=== PATIENT | female | born 1965 | race Caucasian/White ===

== ENCOUNTER 2020-10-28 11:31 | Outpatient (REF) | payer OTHER, SELFPAY ==
--- NOTE | 2020-10-28 11:35 | MM_ITS ---
EXAMINATION: MM SCREENING DIGITAL BREAST TOMOSYNTHESIS, BILATERAL CLINICAL INFORMATION: Screening. Asymptomatic. Prior history benign biopsy 1992. The lifetime risk of breast cancer based on the Tyrer-Cuzick Model is 8%. COMPARISON: Mammography: 06/05/2019, 09/14/2016 TECHNIQUE: Digital breast tomosynthesis is performed in both the craniocaudal and mediolateral oblique views along with computer-aided detection (CAD). Synthesized 2D images are generated from the tomosynthesis. Additional exaggerated right CC view is provided. FINDINGS: The breasts are heterogeneously dense, which may obscure small masses (ACR BI-RADS breast composition Category c). Left MLO tomography demonstrates subtle architectural changes mid upper quadrant central lateral aspect without correlate on CC view. Finding not seen with certainty on prior exams. Patient data sheet notes history remote breast biopsy 1992, side not provided. Patient will be recalled for additional imaging. The remainder of the breasts are unremarkable. The right breast shows no architectural abnormality. Neither breast shows abnormal calcifications. The axilla are unremarkable. MM/MM tomosynthesis screening BI IMPRESSION: 1. Left: Subtle architectural changes upper quadrant on MLO tomography. 2. Right: No mammographic evidence of malignancy. ASSESSMENT: BI-RADS 0: Incomplete - Need Additional Imaging Evaluation RECOMMENDATION: 1. Additional views of the left breast (3-D spot MLO, 3-D spot ML). 2. Targeted ultrasound if warranted after review of the additional views. 3. Radiology department staff will contact the patient for additional imaging. This patient's information was entered into a reminder system with a target due date for their next mammogram.
== END 2020-10-28 11:32 | disposition home or self-care (01) ==
LOC: HO.MAMMO 11:31
PROVIDERS: PCP Internal Medicine; Visit Provider Internal Medicine
DX: Z12.31 Encounter for screening mammogram for malignant neoplasm of breast (principal)
CPT/HCPCS: 77063; 77067

== ENCOUNTER 2020-10-30 07:52 | Day surgery (SDC) | payer OTHER, SELFPAY ==
[2020-10-24 13:01] VITALS: BMI 25.7
--- NOTE | 2020-10-29 13:37 | P.CONAN_ITS ---
Documented by User: Jeanine Posey 10/29/20 13:38 HPI - Anesthesia Eval Consult details Narrative: 55yo F for Colonoscopy [facility] Past Medical History Medical History Cervical spondylosis Fatty liver Hx of mitral valve prolapse Lumbar disc disorder Thyroid disease Surgical History Surgical History H/O colonoscopy History of esophagogastroduodenoscopy (EGD) Hx of lumbar discectomy Hx of salpingo-oophorectomy, bilateral Social History Social History Smoking Status: Never smoker Use of substances other than those prescribed or required for medical reasons: No Advance Directives: No Advance Directives Information Provided: No Recently lost weight without trying: No Meds Allergies Allergy/AdvReac Type Severity Reaction Status Date / Time No Known Allergies Allergy Verified 10/30/20 08:08 Home Medications Medication Instructions Recorded Confirmed Type dutasteride 1 cap PO DAILY 10/24/20 10/24/20 History fluoxetine 1 cap PO DAILY 10/24/20 10/24/20 History furosemide 2 tab PO DAILY 10/24/20 10/24/20 History levothyroxine 1 tab PO QAM 10/24/20 10/24/20 History liothyronine 1 tab PO QAM 10/24/20 10/24/20 History lorazepam 1 tab PO Q6H PRN 10/24/20 10/24/20 History fluticasone propionate 2 spray NOSTRIL-L 10/30/20 History Exam Exam Date and Time: October 29, 2020 1337 Height,Weight and Vital Signs: Height 5 ft 9 in Weight 78.925 kg Assessment and Plan Assessment Anesthesia Assessment: Chart Reviewed Documented by User: Carly Blanc 10/30/20 08:17 [facility] Past Medical History Medical History Cervical spondylosis Fatty liver Hx of mitral valve prolapse Lumbar disc disorder Thyroid disease Surgical History Surgical History H/O colonoscopy History of esophagogastroduodenoscopy (EGD) Hx of lumbar discectomy Hx of salpingo-oophorectomy, bilateral Social History Social History Smoking Status: Never smoker Use of substances other than those prescribed or required for medical reasons: No Advance Directives: No Advance Directives Information Provided: No Recently lost weight without trying: No Meds Allergies Allergy/AdvReac Type Severity Reaction Status Date / Time No Known Allergies Allergy Verified 10/30/20 08:08 Home Medications Medication Instructions Recorded Confirmed Type dutasteride 1 cap PO DAILY 10/24/20 10/24/20 History fluoxetine 1 cap PO DAILY 10/24/20 10/24/20 History furosemide 2 tab PO DAILY 10/24/20 10/24/20 History levothyroxine 1 tab PO QAM 10/24/20 10/24/20 History liothyronine 1 tab PO QAM 10/24/20 10/24/20 History lorazepam 1 tab PO Q6H PRN 10/24/20 10/24/20 History fluticasone propionate 2 spray NOSTRIL-L 10/30/20 History Exam Airway Mallampati Class: II TM Dist: >3cm Neck ROM: Full Loose/Missing/Broken Teeth: No Heart: RRR Lungs: CTA Assessment and Plan Assessment Anesthesia Assessment: Anesthesia Plan Discussed and Chart Reviewed Final Anesthetic Review NPO: Yes ASA Class: II Final Preanesthetic Review: Meds/Allgs Chart Reviewed, Consent Obtained/Reviewed and Anes Risks/Benef Reviewed Patient Risk: Low Procedure Risk: Low Anesthetic Plan Anesthetic Plan: MAC: Disposition: Standard PACU
[2020-10-30 08:03] VITALS: BP 133/62; PULSE 68; RESP 16; TEMP 37; O2SAT 95
[2020-10-30] MEDS: Lactated Ringers 1,000 ML 100 ML IVCONT (08:18)
--- NOTE | 2020-10-30 08:44 | MHC.SHP ---
Pre-Procedural Eval Section B Chief Complaint: Adenomatous Colon Polyps Details of Present Illness: No changes Relevant Family History (Specify if Yes): No Relevant Social History: None Present Medications: see Short Stay Collaborative assessment Medical History: Significant History (MVP, Hypothyroid on replacement, ?Hepatic steatosis) History of Previous Operations: Relevant previous surgery/procedure and date(s) (bilateral oophorectomies) Allergies: Allergies Allergy/AdvReac Type Severity Reaction Status Date / Time No Known Allergies Allergy Verified 10/30/20 08:08 Review of Systems Sugical H&P ROS: Negative: Constitution, Respiratory, Neurological and Gastrointestinal and Yes, Specify: Cardiovascular (MVP) and Endocrine (hypothryoid) Exam Surgical H&P Exam: Normal: HEENT, Normal: Heart, Normal: Lungs, Normal: Extremities, Normal: Abdomen and Normal: Skin Plan Diagnosis/Plan: Unchanged I have reviewed the history and physical and performed a pertinent physical examination on my patient. No changes have occurred unless specified. yes
[2020-10-30 09:19] VITALS: BP 104/54; PULSE 55; RESP 18; TEMP 36.6; O2SAT 94
--- NOTE | 2020-10-30 09:25 | PM.OP ---
Brief Operative Note Date of Service: 10/30/20 Pre-op diagnosis: COLON CANCER SCREENING, HX OF RECTAL TUBULAR ADENOMA Post-op diagnosis: other (COLONIC POLYPS) Procedure: COLONOSCOPY WITH MULTIPLE POLYPECTOMIES--EXCISIONAL--COLD BX FORCEPS Implants: NONE Surgeon: Margi Howard MD Anesthesia: MAC (MD WINSOME) Estimated blood loss (mL): 5 Pathology: other (ASCENDING COLON, DISTAL RECTAL) Condition: stable Disposition: PACU
[2020-10-30 09:34] VITALS: BP 117/54; PULSE 60; RESP 12; TEMP 36.6; O2SAT 96
[2020-10-30] MEDS: Acetaminophen 325 MG TABLET 650 MG PO (09:45)
--- NOTE | 2020-10-30 10:09 | OP_ITS ---
SURGEON: Margi Howard MD POSTOPERATIVE DIAGNOSIS: Ascending colon polyps, rectal polyps, melanosis coli. PROCEDURE PERFORMED: Colonoscopy with excisional polypectomy x4 with the use of the cold biopsy forceps technique. ESTIMATED BLOOD LOSS: 5 mL. COMPLICATIONS: No complications. ANESTHESIA: Monitored. ANESTHESIOLOGIST: Carly Blanc MD ASSISTANTS: No retail event and sales assistant. SPECIMENS:-outlined below. PREOPERATIVE DIAGNOSES: Colon cancer screening, history of tubular adenoma located in the rectum in 2015. DIRECTOR OF ACCOUNTS PAYABLE: Dr. Howard. CONDITION: Postprocedure, stable. FINDINGS: Digital rectal exam revealed no specific lesion. Video colonoscope was introduced without difficulty. It was navigated into the rectosigmoid sigmoid on up through descending, transverse, ascending colon down into the cecal cap. Appendiceal orifice was seen. Ileocecal valve was well seen. 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 Two diminutive polyps were noted in the ascending colon, one in the proximal ascending colon and one in the distal ascending colon. Slow withdrawal of scope. Good rotational views. Once in the low rectal region, there were at least 2 polyps that had an atypical cryptic appearance. These were removed. All polyps were diminutive in size. PLAN/CURRENT RECOMMENDATIONS: Repeat asymptomatic screening, at the most would be 5 years. If they are greater than 2 tubular adenomas, 3-year exam will be considered. SPECIMEN: Specimens removed; ascending colon 2, distal rectal 2. GRAFT OR IMPLANTS: No grafts or implants. Margi Howard MD MEN/MODL / [id number] [facility], [place]
--- NOTE | 2020-10-30 10:13 | HO.POSTANES ---
Post Anesthesia Evaluation Post Anesthesia Evaluation Vital Signs: Vital Signs Temp Pulse Resp BP Pulse Ox 10/30/20 09:34 97.9 F 60 12 117/54 L 96 10/30/20 09:19 97.9 F 55 18 104/54 L 94 10/30/20 08:03 98.6 F 68 16 133/62 95 Anesthesia: Monitored Pain Control: Satisfactory Nausea/Vomiting: None Hydration: Adequate Anesthesia-Related Issues: No Anes. Related Issues
== END 2020-10-30 10:23 | disposition home or self-care (01) ==
PROVIDERS: PCP Internal Medicine; Visit Provider Internal Medicine Gastroenterology
PROC: 0DJD8ZZ Inspection of Lower Intestinal Tract, Via Natural or Artificial Opening Endoscopic (ICD-10-PCS; CPT 45378; principal; 2020-10-30 08:30)
DX: Z12.11 Encounter for screening for malignant neoplasm of colon (principal); D12.2 Benign neoplasm of ascending colon; K62.1 Rectal polyp; K63.89 Other specified diseases of intestine; Z86.010 Personal history of colon polyps
CPT/HCPCS: 45380; 88305

== ENCOUNTER 2020-11-27 13:21 | Outpatient (REF) | payer OTHER, SELFPAY ==
--- NOTE | 2020-11-27 13:28 | MM_ITS ---
EXAMINATION: MM DIAGNOSTIC DIGITAL BREAST TOMOSYNTHESIS, LEFT CLINICAL INFORMATION: Recall from screening for question of architectural changes upper left breast on one view. COMPARISON: Mammography: 10/28/2020, 06/05/2019, 09/14/2016 TECHNIQUE: Digital breast tomosynthesis is performed. 2D images are generated from the tomosynthesis. The following views are obtained: Spot MLO, spot ML FINDINGS: The breasts are heterogeneously dense, which may obscure small masses (ACR BI-RADS breast composition Category c). Additional views show no architectural abnormality. There is no mass or developing density. Parenchymal pattern appears similar to prior studies. Results are discussed with the patient at time of visit. MM/MM tomosynthesis added views L IMPRESSION: Additional views show parenchymal pattern similar to prior studies. ASSESSMENT: BI-RADS 1: Negative RECOMMENDATION: Routine annual mammography screening. This patient's information was entered into a reminder system with a target due date for their next mammogram.
== END 2020-11-27 13:22 | disposition home or self-care (01) ==
LOC: HO.MAMMO 13:21
PROVIDERS: PCP Internal Medicine; Visit Provider Internal Medicine
DX: N64.89 Other specified disorders of breast (principal)
CPT/HCPCS: 77061; 77065

== ENCOUNTER 2020-12-03 | Outpatient (REF) | payer OTHER, SELFPAY ==
[2020-12-08 21:52] LABS: HPV mRNA E6/E7 Not Detected (Not Detected)
== END 2020-12-03 00:01 | disposition home or self-care (01) ==
LOC: HO.LNP
PROVIDERS: Visit Provider Obstetrics & Gynecology
DX: N95.0 Postmenopausal bleeding (principal)
CPT/HCPCS: 87624; 87625; 88141; 88142

== ENCOUNTER → 2020-12-03 09:32 | Outpatient (BNVA) | payer OTHER, SELFPAY | PROVIDERS: PCP Internal Medicine; Visit Provider Obstetrics & Gynecology ==

== ENCOUNTER 2020-12-04 11:04 | Outpatient (REF) | payer OTHER, SELFPAY | END 2020-12-04 11:05 | disposition home or self-care (01) | LOC: HO.LAB 11:04 | PROVIDERS: Visit Provider Obstetrics & Gynecology | DX: Z13.89 Encounter for screening for other disorder (principal) ==

== ENCOUNTER 2020-12-11 12:45 | Outpatient (REF) | payer OTHER, SELFPAY ==
--- NOTE | 2020-12-11 12:47 | US_ITS ---
EXAMINATION: US PELVIS, COMPLETE CLINICAL INFORMATION: Postmenopausal bleeding; history of bilateral oophorectomies. COMPARISON: Pelvic ultrasound dated 04/09/2015. TECHNIQUE: Transabdominal and transvaginal imaging was performed. FINDINGS: The uterus is of normal size and somewhat heterogeneous in echotexture, measuring 6.5 x 2.6 x 3.8 cm. The uterus is anteverted and anteflexed. A regular homogeneous endometrium is identified measuring 1.1 cm. FIBROIDS: There is 1 fibroid seen. 1. Location: Anterior lower body, myometrial. Size: 1.1 x 1.0 x 0.9 cm. Fibroid characteristics: Hypoechoic. Both ovaries are surgically absent. There is no pelvic free fluid. No adnexal mass is seen. US/US pelvic complete IMPRESSION: 1. A small uterine fibroid is seen. 2. The bilateral ovaries are surgically absent.
--- NOTE | 2020-12-11 12:47 | US_ITS ---
EXAMINATION: US PELVIS, COMPLETE CLINICAL INFORMATION: Postmenopausal bleeding; history of bilateral oophorectomies. COMPARISON: Pelvic ultrasound dated 04/09/2015. TECHNIQUE: Transabdominal and transvaginal imaging was performed. FINDINGS: The uterus is of normal size and somewhat heterogeneous in echotexture, measuring 6.5 x 2.6 x 3.8 cm. The uterus is anteverted and anteflexed. A regular homogeneous endometrium is identified measuring 1.1 cm. FIBROIDS: There is 1 fibroid seen. 1. Location: Anterior lower body, myometrial. Size: 1.1 x 1.0 x 0.9 cm. Fibroid characteristics: Hypoechoic. Both ovaries are surgically absent. There is no pelvic free fluid. No adnexal mass is seen. US/US transvaginal IMPRESSION: 1. A small uterine fibroid is seen. 2. The bilateral ovaries are surgically absent.
== END 2020-12-11 12:46 | disposition home or self-care (01) ==
LOC: HO.US 12:45
PROVIDERS: Visit Provider Obstetrics & Gynecology
DX: N95.0 Postmenopausal bleeding (principal)
CPT/HCPCS: 76830; 76856

== ENCOUNTER → 2020-12-25 13:21 | Outpatient (BNVA) | payer OTHER, SELFPAY | PROVIDERS: Visit Provider Obstetrics & Gynecology ==

== ENCOUNTER → 2021-01-14 14:21 | Outpatient (BNVA) | payer OTHER, SELFPAY | PROVIDERS: PCP Internal Medicine; Visit Provider Obstetrics & Gynecology ==

== ENCOUNTER 2021-01-23 11:09 | Day surgery (SDC) | payer OTHER, SELFPAY ==
--- NOTE | 2021-01-22 09:38 | HO.ANESPROP2 ---
Documented by User: Jeanine Posey 01/22/21 09:39 HPI - Anesthesia Eval Consult details Narrative: 55yo F for D&C Diagnostic Hysteroscopy PMFSH Active Problems Active Problems: All Active Problems (Updated 01/19/21 @ 12:12 by Radha Swan) Well woman exam (Acute) Postmenopausal bleeding (Acute) Past Medical History Medical History Cervical spondylosis Fatty liver Hx of eosinophilia Hx of mitral valve prolapse Lumbar disc disorder Thyroid disease Surgical History Surgical History H/O colonoscopy History of esophagogastroduodenoscopy (EGD) Hx of lumbar discectomy Hx of salpingo-oophorectomy, bilateral Social History Social History Smoking Status: Never smoker Use of substances other than those prescribed or required for medical reasons: No Advance Directives: No Advance Directives Information Provided: No Advance Directives on File: No Meds Allergies Allergy/AdvReac Type Severity Reaction Status Date / Time No Known Allergies Allergy Verified 01/14/21 14:46 Home Medications Medication Instructions Recorded Confirmed Last Taken Type dutasteride 1 cap PO DAILY 10/24/20 01/19/21 Unknown History fluoxetine 1 cap PO DAILY 10/24/20 01/19/21 Unknown History furosemide 2 tab PO DAILY 10/24/20 01/19/21 Unknown History levothyroxine 1 tab PO QAM 10/24/20 01/19/21 Unknown History liothyronine 1 tab PO QAM 10/24/20 01/19/21 Unknown History lorazepam 1 tab PO Q6H PRN 10/24/20 01/14/21 Unknown History aspirin 81 mg tablet,delayed 81 mg PO DAILY 01/14/21 01/19/21 Unknown History release fluticasone propionate 1 spray INTRANASAL DAILY 01/19/21 01/19/21 Unknown History omeprazole 1 cap PO QAM 01/19/21 01/19/21 Unknown History Exam Exam Date and Time: January 22, 2021 0938 Height,Weight and Vital Signs: Height 5 ft 9 in Assessment and Plan Assessment Anesthesia Assessment: Chart Reviewed Documented by User: Mundo Casarez 01/23/21 12:04 PMF Past Medical History Medical History Cervical spondylosis Fatty liver Hx of eosinophilia Hx of mitral valve prolapse Lumbar disc disorder Thyroid disease Surgical History Surgical History H/O colonoscopy History of esophagogastroduodenoscopy (EGD) Hx of lumbar discectomy Hx of salpingo-oophorectomy, bilateral Social History Social History Smoking Status: Never smoker Use of substances other than those prescribed or required for medical reasons: No Advance Directives: No Advance Directives Information Provided: No Advance Directives on File: No Meds Allergies Allergy/AdvReac Type Severity Reaction Status Date / Time No Known Allergies Allergy Verified 01/14/21 14:46 Home Medications Medication Instructions Recorded Confirmed Last Taken Type dutasteride 1 cap PO DAILY 10/24/20 01/19/21 Unknown History fluoxetine 1 cap PO DAILY 10/24/20 01/19/21 Unknown History furosemide 2 tab PO DAILY 10/24/20 01/19/21 Unknown History levothyroxine 1 tab PO QAM 10/24/20 01/19/21 Unknown History liothyronine 1 tab PO QAM 10/24/20 01/19/21 Unknown History lorazepam 1 tab PO Q6H PRN 10/24/20 01/14/21 Unknown History aspirin 81 mg tablet,delayed 81 mg PO DAILY 01/14/21 01/19/21 Unknown History release fluticasone propionate 1 spray INTRANASAL DAILY 01/19/21 01/19/21 Unknown History omeprazole 1 cap PO QAM 01/19/21 01/19/21 Unknown History Exam Airway Mallampati Class: III TM Dist: >3cm Neck ROM: Full
[2021-01-23 11:24] VITALS: BP 144/59; PULSE 76; RESP 18; TEMP 36.3; O2SAT 94; BMI 25.1
[2021-01-23] MEDS: Lactated Ringers 1,000 ML 100 ML IVCONT (11:34)
--- NOTE | 2021-01-23 12:13 | MHC.SHP ---
Pre-Procedural Eval Section A The patient is an INPATIENT: No Changes since office visit: No Cold of Flu in the past 2 weeks, No New Medical Problems, No Changes in Medication and No Patient answered all questions The History & Physical has been completed within 30 days and I have reviewed it.: Yes Section B Chief Complaint: PMB Allergies: Allergies Allergy/AdvReac Type Severity Reaction Status Date / Time No Known Allergies Allergy Verified 01/14/21 14:46 Plan Diagnosis/Plan: Unchanged I have reviewed the history and physical and performed a pertinent physical examination on my patient. No changes have occurred unless specified.
[2021-01-23 12:56] VITALS: BP 133/64; PULSE 67; RESP 14; TEMP 37; O2SAT 96
--- NOTE | 2021-01-23 12:56 | PM.OP ---
Brief Operative Note Date of Service: 01/23/21 Pre-op diagnosis: Postmenopausal bleeding Post-op diagnosis: same Procedure: Hysteroscopy D&C, Polypectomy Surgeon: Arnel Borden MD Anesthesia: MAC Estimated blood loss (mL): 0 Pathology: other (Endometrial Scrapping. Polyp) Condition: stable Disposition: PACU
--- NOTE | 2021-01-23 12:57 | P.OP_ITS ---
Operative Note Operative Note Date of Service: 01/23/21 Narrative: Preop Diagnosis: Postmenopausal bleeding Operation: Diagnostic Hysteroscopy, Dilataion & Curettage Post Op Diagnosis: normal endometrial and endocervical cavity no evidence of pathology QBL: Minimal Anesthesia: MAC Surgeon: Arnel Borden MD [employer] Cell [employer] Supervisor: None Complication: None Pathology: Endometrial Scrapings Procedure: The patient was put in the dorsal lithotomy position, scrubbed, and draped in the usual manner. A sterile speculum was inserted in the patient's vagina. The anterior lip of the cervix was grasped with a single tooth tenaculum. The cervix was dilated up to 5 mm, then the scope was inserted in the patient's uterus. Inspection revealed normal endocervical & endometrial cavity with no evidence of pathology. The scope was taken out of the uterine cavity , then sharp curetting was carried on with no complications. At the end of the procedure, all instruments were taken out of the patient uterine and vaginal cavity. The single tooth tenaculum was removed and homeostasis was assured using pressure. The patient tolerated the procedure well and was transferred to the PACU in a stable condition.
[2021-01-23 13:01] VITALS: BP 133/55; PULSE 65; RESP 17; O2SAT 96
[2021-01-23 13:13] VITALS: BP 128/57; PULSE 75; RESP 18; O2SAT 97
[2021-01-23 13:28] VITALS: BP 125/55; PULSE 61; RESP 17; O2SAT 95
[2021-01-23 13:43] VITALS: BP 122/45; PULSE 65; RESP 17; TEMP 36.1; O2SAT 96
== END 2021-01-23 14:18 ==
LOC: HO.SSS 11:10
PROVIDERS: PCP Internal Medicine; Visit Provider Obstetrics & Gynecology
PROC: 0UDB8ZX Extraction of Endometrium, Via Natural or Artificial Opening Endoscopic, Diagnostic (ICD-10-PCS; CPT 58558; principal; 2021-01-23 13:10)
DX: N95.0 Postmenopausal bleeding (principal); Z90.722 Acquired absence of ovaries, bilateral; Z90.79 Acquired absence of other genital organ(s); E03.9 Hypothyroidism, unspecified; Z86.79 Personal history of other diseases of the circulatory system; Z79.82 Long term (current) use of aspirin; Z79.899 Other long term (current) drug therapy
CPT/HCPCS: 58558; 88305; J1100; J1885; J2250; J2405; J3010

== ENCOUNTER → 2021-02-05 12:15 | Outpatient (BNVA) | payer OTHER, SELFPAY | PROVIDERS: PCP Internal Medicine; Visit Provider Obstetrics & Gynecology ==

== ENCOUNTER 2021-02-27 17:04 | Outpatient (REF) | payer OTHER, SELFPAY ==
--- NOTE | ~2021-02-27 | XR_ITS ---
Indication: Injury EXAMINATION: Left ankle, left foot. 3 views of left ankle cannot demonstrate fracture or dislocation. 3 views of the left foot demonstrate a step-off involving the region of the distal calcaneus at the articulation with the cuboid. A fracture here cannot be excluded though this may represent an osteophyte. There is also mild bony density along the dorsal aspect of the distal talus. This may be degenerative. Small avulsion here could not be excluded. XR/XR ankle LT min 3V IMPRESSION: No fracture or dislocation in the ankle. As described step off of the distal calcaneus at the articulation of the cuboid laterally. A fracture here cannot be excluded. Point palpation would be recommended. Point palpation would also be recommended for the distal aspect of the dorsal talus. Mild bony irregularity is noted
--- NOTE | ~2021-02-27 | XR_ITS ---
Indication: Injury EXAMINATION: Left ankle, left foot. 3 views of left ankle cannot demonstrate fracture or dislocation. 3 views of the left foot demonstrate a step-off involving the region of the distal calcaneus at the articulation with the cuboid. A fracture here cannot be excluded though this may represent an osteophyte. There is also mild bony density along the dorsal aspect of the distal talus. This may be degenerative. Small avulsion here could not be excluded. XR/XR foot LT min 3V IMPRESSION: No fracture or dislocation in the ankle. As described step off of the distal calcaneus at the articulation of the cuboid laterally. A fracture here cannot be excluded. Point palpation would be recommended. Point palpation would also be recommended for the distal aspect of the dorsal talus. Mild bony irregularity is noted
== END 2021-02-27 17:05 | disposition home or self-care (01) ==
LOC: HO.HMGCX 17:04
PROVIDERS: PCP Internal Medicine; Visit Provider Nurse Practitioner Family
DX: M25.572 Pain in left ankle and joints of left foot (principal)
CPT/HCPCS: 73610; 73630

== ENCOUNTER 2021-03-17 08:33 | Outpatient (REF) | payer OTHER, SELFPAY ==
--- NOTE | ~2021-03-17 | XR_ITS ---
EXAMINATION: XR FOOT, LEFT CLINICAL INFORMATION: Left foot injury. COMPARISON: None TECHNIQUE: AP, lateral, and oblique views of the left foot. FINDINGS: The bones and soft tissues are normal. No fracture. Alignment is anatomic. Joint spaces are maintained. XR/XR foot LT min 3V IMPRESSION: Unremarkable left foot exam.
== END 2021-03-17 08:34 | disposition home or self-care (01) ==
LOC: HO.HOSX 08:33
PROVIDERS: Visit Provider Physician Assistant
DX: S93.312A Subluxation of tarsal joint of left foot, initial encounter (principal)
CPT/HCPCS: 73630

== ENCOUNTER 2023-08-04 18:10 | Outpatient (REF) | payer OTHER, SELFPAY | END 2023-08-04 18:11 | disposition home or self-care (01) | LOC: HO.LNP 18:10 | PROVIDERS: Visit Provider Internal Medicine | DX: B83.9 Helminthiasis, unspecified (principal) | CPT/HCPCS: 87177; 87209 ==

== ENCOUNTER 2024-08-24 11:00 | Outpatient (AMB) | payer OTHER, SELFPAY ==
--- NOTE | 2024-08-24 11:00 | MHC.PC.OV ---
Vital Signs 08/24/24 11:01 Height 5 ft 9 in Weight 180 lb BMI 26.6 BP 132/84 Blood Pressure Location Lt brachial Position Sitting Pulse 65 Pulse Source Pulse Oximeter Pulse Oximetry (%) 94 Oxygen Delivery Method Room Air Intake Visit Reasons: Medication F/U Business Coordinator Required: No Accompanied by: Self / Same As Patient Allergies No Known Allergies Allergy (Verified 08/24/24 11:01) Tobacco use date assessed: 08/24/24 Dental Screening Dental Screen Date: 08/24/24 Did you have a dental visit in the last 12 months?: Yes Did you have a dental problem in the last 6 months where you did not have access to dental care?: No Was dental information given to patient?: Patient has dentist HPI Medication F/U HPI Details HTN on Rx; doing well; compliant [facility] Medical History (Updated 09/27/22 @ 11:13 by Giuseppe Mendes MD) Hypothyroidism Hx of eosinophilia Cervical spondylosis Fatty liver Lumbar disc disorder Hx of mitral valve prolapse Thyroid disease Surgical History Hx of lumbar discectomy Hx of salpingo-oophorectomy, bilateral History of esophagogastroduodenoscopy (EGD) H/O colonoscopy Family History Mother No problems noted. Father No problems noted. Social History Housing: House Alcohol intake: current Alcohol intake frequency: 3 or more drinks per day Comment: Low back pain Patient Tobacco Use Status: Never used Tobacco Tobacco use type: Cigarette e-Cigarette/Vaping Use: Never Used Second Hand Smoke Exposure: No service: No Current occupational status: unemployed Cognitive needs: No Hearing needs: No Vision needs: No Female Reproductive History Menstrual Age of Menarche: 10 Questionnaire PHQ-9 Over the last 2 weeks, how often have you been bothered by any of the following problems? 1. Little interest or pleasure in doing things: not at all 2. Feeling down, depressed, or hopeless: not at all (on meds that helps) 3. Trouble falling or staying asleep, or sleeping too much: not at all 4. Feeling tired or having little energy: nearly every day (very tired) 5. Poor appetite or overeating: not at all 6. Feeling bad about yourself - or that you are a failure or have let yourself or your family down: not at all 7. Trouble concentrating on things, such as reading the newspaper or watching television: not at all 8. Moving or speaking so slowly that other people could have noticed. Or the opposite - being so fidgety or restless that you have been moving around a lot more than usual: not at all 9. Thoughts that you would be better off or of hurting yourself in some way: not at all Total score: 3 Depression Screening Interpretation: Negative Depression Screening Done: Yes 57349 - PHQ-9 Billing: Yes Source: Developed by Drs. Gokul Valencia, Danielle Yin, Juan Pablo Rm and colleagues, with an educational samantha from [employer]. Thrive Questionnaire Date Thrive assessed: 08/24/24 I am a: Patient What is your living situation today?: I have a steady place to live Within the past 12 months, did the food you bought not last and you didn't have the money to get more?: Never true Within the past 12 months, did you worry whether your food would run out before you got money to buy more?: Never true Are you currently unemployed and looking for a job?: Yes THRIVE Score: 0 AUDIT C Alcohol Use Questionnaire (AUDIT-C) 1. How often do you have a drink containing alcohol?: 2-3 times a week 2. How many drinks containing alcohol do you have on a typical day when you are drinking?: 1 or 2 3. How often do you have six or more drinks on one occasion?: Less than monthly Total Score: 4 SIDRA-7 AMB Questionnaire SIDRA-7 Date SIDRA - 7 assessed: 08/24/24 Feeling nervous, anxious, or on edge: 0 = Not at all Not being able to stop or control worryin = Not at all Worrying too much about different things: 0 = Not at all Trouble relaxin = Not at all Being so restless that it is hard to sit still: 0 = Not at all Becoming easily annoyed or irritable: 0 = Not at all Feeling afraid as if something awful might happen: 0 = Not at all Total SIDRA-7 score (0-4 normal; 5-9 mild; 10-14 moderate; 15-21 severe): 0 Source: Developed by Drs. Gokul Valencia, Danielle Yin, Juan Pablo Rm and colleagues, with an educational samantha from [employer]. SIDRA-7 Assessment Billing SIDRA-7 Assessment Tool: SIDRA-7 Assessment 51337 Review of Systems Const Denies chills, Denies headache(s) and Denies weight loss ENT Denies headache(s) Card Denies chest pain, Denies syncope, Denies irregular heart rhythm and Denies dyspnea Resp Denies chest congestion, Denies cough and Denies dyspnea GI Denies abdominal pain, Denies change in stool character, Denies nausea and Denies vomiting Musc Denies deformity and Denies joint swelling Neuro Denies syncope and Denies headache(s) Physical exam (Primary Care) Vital Signs: Last Vital Signs Pulse 65 08/24/24 11:01 BP 132/84 08/24/24 11:01 Pulse Ox 94 08/24/24 11:01 Oxygen Delivery Method Room Air 08/24/24 11:01 BMI result Body Mass Index 26.6 Tobacco/Smoking Status: Tobacco use Status Tobacco use date assessed 08/24/24 08/24/24 11:08 Patient Tobacco Use Status Never used Tobacco 08/24/24 11:08 Tobacco use type Cigarette 08/24/24 11:08 e-Cigarette/Vaping Use Never Used 08/24/24 11:08 PHQ-9: PHQ-9 Score PHQ-9: Total score 3 08/24/24 11:10 Depression Screening Interpretation: Negative Thrive Assessment: Date of Thrive Assessment Date Thrive assessed 08/24/24 08/24/24 11:08 Const General: cooperative, comfortable, no acute distress and alert Neck Neck: Yes no lymphadenopathy Thyroid: Thyroid normal Resp Effort & Inspection: normal respiratory effort Auscultation: clear to auscultation bilaterally Percussion: percussion normal Cardio Jugular venous distension: no JVD Palpation: normal PMI Rate: regular rate Rhythm: regular rhythm Heart sounds: S1 normal heart sound present and S2 normal heart sound present GI Inspection: Yes normal to inspection Palpation (GI): No hepatosplenomegaly present Skin General skin exam: no rashes or lesions noted Extrem General: Yes no clubbing, cyanosis or edema Coding Level of Care Code Est Pt Level 3 (44833) Diagnoses Hypertension I10 Additional Codes SIDRA-7 Assessment Billing - SIDRA-7 Assessment Tool: SIDRA-7 Assessment 13181 ([id number]) Assessment & Plan Assessment & Plan (1) Hypertension: Code(s): I10 - Essential (primary) hypertension Category: Medical Plan: stable; same rx Orders: Orders Complete Blood Count Auto Diff Today Z13.0 - Encounter for screening for diseases of the blood and blood-forming organs and certain disorders involving the immune mechanism Comprehensive [place]. Panel Fast Today Z13.9 - Encounter for screening, unspecified Thyroid Stimulating Hormone Today Z13.29 - Encounter for screening for other suspected endocrine disorder Lipid Panel Today Z13.220 - Encounter for screening for lipoid disorders
[2024-08-24 11:01] VITALS: BP 132/84; PULSE 65; O2SAT 94; BMI 26.6
== END 2024-08-24 11:16 | disposition home or self-care (01) ==
PROVIDERS: PCP Internal Medicine; Visit Provider Internal Medicine
DX: I10 Essential (primary) hypertension (principal)

== ENCOUNTER → 2024-08-24 11:00 | Outpatient (BNVA) | payer OTHER, SELFPAY | PROVIDERS: PCP Internal Medicine; Visit Provider Internal Medicine | DX: I10 Essential (primary) hypertension (principal) | CPT/HCPCS: 96127 ==

== ENCOUNTER 2025-09-04 12:57 | Outpatient (REF) | payer OTHER, SELFPAY ==
[2025-09-04 13:49] LABS: Appearance Urine Hazy; Glucose Urine UA Negative (Negative); PH 6.0 (5.0-9.0); Specific Gravity - Urine >= 1.030 (1.005-1.025)
--- OUTSIDE RECORDS SUMMARY | 2025-09-04 18:06 | XMS_ITS | Patient Health Record ---
Author Organization [facility] Address [address] [place] [address] Care Team Providers Care Consulting Senior Practice Director Name Role Phone Giuseppe Mendes MD Primary Care Provider Gokul Aranda [phone] Allergies Allergen (clinical drug ingredient) Drug/Non Drug Allergy documented on EMR Reaction Allergy Type Onset Date Status seasonal,dust,animal s (uncoded) Unknown Allergy Active Reason For Referral No Information Medications Medication SIG (Take, Route, Frequency, Duration) Notes Start Date End Date Status Furosemide 20 MG 1 tablet Orally Once a day For fluid retention Active MoviPrep 100 GM as directed Orally a s directed; Duration: 1 dose 08/27/2014 Active PROzac 20 MG 1 capsule in the morning Orally Once a day Active Problems Problem Type SNOMED Code ICD Code Onset Dates Problem Status W/U Status Risk Notes Problem Colon cancer screening (240757935) Colon cancer screening (V76.51) Active confirmed Problem Flatulence, eructation and gas pain (972756545) Bloating (787.3) Active confirmed Plan Of Treatment Future Test Test Name Order Date COLONOSCOPY 08/27/2014 Insurance Providers Payer Name Payer Address Payer Phone Subscriber Number Group Number Insured Name Patient Relationship to Insured Coverage Start Date Coverage End Date [facility] [address] [facility] [place] [phone] [id number] CARLEY VILLANUEVA Self - patient is the insured Medical (General) History Medical History History ICD Code Denies MS,DM,CVA,Lung disease,renal dise ase Depression Mitral valve prolapse she describes a history of f atigue and elevated eosinophils in early 2013--she was evaluated by the riprap placer, Dr. Santos, and was told of some allergies but never had allergy shots--she describes that she was tested for celiac disease and this was negative--her constitutional symptoms ultimately resolved and the eosinophil count decreased Surgical History Surgery Date(Month/Year) Right oopherectomy and removal of the Fa llopian tube 2012 spine surgery--L5---Dr. Doshi 2012
== END 2025-09-04 12:58 | disposition home or self-care (01) ==
LOC: HO.LAB 12:57
DX: R35.0 Frequency of micturition (principal)
CPT/HCPCS: 81003